=== PATIENT | female | born 1935 | race Caucasian/White ===

== ENCOUNTER 2019-10-17 12:30 | Inpatient (IN) | payer MEDICARE, BC ==
[2019-10-17] MEDS ORDERED: diphenhydrAMINE 25 MG Cap PO PRN (16:41)
--- NOTE | 2019-10-17 16:44 | PCM.HP.2 ---
H&P History of Present Illness - General Date of Service: 10/17/19 Admit Problem/Dx: Admission Diagnosis/Problem Admission Diagnosis/Problem Weakness Source of Information: Patient History Limitations: Reports: No Limitations - History of Present Illness Initial Comments - Free Text/Narative: 84 yo female admitted to [facility] for rehab.She has had right SAIRA. Post op anemia,otherwise doing well. Pain well controlled.Previously healthy with the exception of arthritis and chronic back pain Right Hip Pain Score (Numeric/FACES): 3 - Related Data Allergies/Adverse Reactions: Allergies Allergy/AdvReac Type Severity Reaction Status Date / Time lisinopril Allergy Cough Verified 10/17/19 18:14 Home Medications: Home Meds Acetaminophen [Tylenol Extra Strength] 1,000 mg PO QID 10/17/19 [History] Apixaban [Eliquis] 2.5 mg PO BID 10/17/19 [History] George Cit/Mag/D3/Zn/Pizza Delivery Driver/Harinder/Bor [Citracal-Vit D + Magnesium] 1 tab PO DAILY 10/16 [History] Celecoxib [CeleBREX] 200 mg PO DAILY 10/17/19 [History] Ferrous Gluconate 324 mg PO Q48H 10/17/19 [History] Multivitamin 1 tab PO DAILY 10/17/19 [History] Pantoprazole Sodium [Protonix] 40 mg PO BEDTIME 10/17/19 [History] Sennosides/Docusate Sodium [Senna-S] 1 tab PO BID 10/17/19 [History] atenoloL [Atenolol] 25 mg PO DAILY 10/17/19 [History] diphenhydrAMINE [Benadryl] 25 mg PO BEDTIME PRN 10/17/19 [History] polyethylene glycoL 3350 [MiraLAX] 17 gm PO DAILY 10/17/19 [History] traMADol [Ultram] 50 mg PO Q6H 10/17/19 [History] H&P Review of Systems - Review of Systems: Review Of Systems: Comprehensive ROS is negative, except as noted in HPI. Exam - Exam Exam: See Below - Exam General: Alert, Oriented, 4 HEENT: PERRLA, Hearing Intact, Mucosa Moist & [place], Nares Patent, Normal Nasal Septum, Posterior Pharynx Clear, Conjunctiva Clear, EOMI, EACs Clear, TMs Clear Neck: Supple, Trachea Midline, 2 Lungs: Clear to Auscultation, Normal Respiratory Effort Cardiovascular: Regular Rate, Regular Rhythm GI/Abdominal Exam: Normal Bowel Sounds, Soft, Non-Tender, No Organomegaly, No Distention, No Abnormal Bruit, No Mass, Pelvis Stable (Female) Exam: Deferred Rectal (Female) Exam: Deferred Back Exam: Normal Inspection, Full Range of Motion, NT Extremities: Normal Inspection, Normal Range of Motion, Non-Tender, No Pedal Edema, Normal Capillary Refill Skin: Warm, Dry, Intact Neurological: Cranial Nerves Intact, Reflexes Equal Bilateral Neuro Extensive - Mental Status: Alert, Oriented x3, Normal Mood/Affect, Normal Cognition Neuro Extensive - Motor, Sensory, Reflexes: CN II-XII Intact, Normal Gait, Normal Reflexes Psychiatric: Alert, Normal Affect, Normal Mood - Problem List (1) H/O total hip arthroplasty SNOMED Code(s): 828529117382, [id number] ICD Code: Z96.649 - PRESENCE OF UNSPECIFIED ARTIFICIAL HIP JOINT Status: Acute Current Visit: Yes Qualifiers: Laterality: right Qualified Code(s): Z96.641 - Presence of right artificial hip joint (2) Postoperative anemia SNOMED Code(s): 562628128, 689718556 ICD Code: D64.9 - ANEMIA, UNSPECIFIED Status: Acute Current Visit: Yes Problem List Initiated/Reviewed/Updated: Yes Orders Last 24hrs: Active Orders 24 hr Category Date Time Status Patient Status [ADT] Routine ADT 10/17/19 16:40 Ordered Height and Weight [RC] WEEKLY Care 10/17/19 16:40 Ordered Oxygen Therapy [RC] PRN Care 10/17/19 16:40 Ordered Up With Assistance [RC] ASDIRECTED Care 10/17/19 16:40 Ordered VTE/DVT Education [RC] Per Unit Routine Care 10/17/19 16:40 Ordered Vital Signs [RC] PER UNIT ROUTINE Care 10/17/19 16:40 Ordered OT Evaluation and Treatment [CONS] Routine Cons 10/17/19 16:40 Ordered PT Evaluation and Treatment [CONS] Routine Cons 10/17/19 16:40 Ordered Regular Diet [DIET] Diet 10/17/19 Breakfast Ordered Acetaminophen [Tylenol Extra Strength] Med 10/17/19 17:00 Ordered 1,000 mg PO QID Apixaban [Eliquis] Med 10/17/19 21:00 Ordered 2.5 mg PO BID George Cit/Mag/D3/Zn/Pizza Delivery Driver/Harinder/Bor [Citracal-Vit D + Med 10/18/19 09:00 Ordered Magnesium] 1 tab PO DAILY Celecoxib [CeleBREX] Med 10/18/19 09:00 Ordered 200 mg PO DAILY Docusate Sodium/Sennosides [Senna Plus] Med 10/17/19 21:00 Ordered 1 tab PO BID Ferrous Gluconate [Ferrous Gluconate] Med 10/17/19 16:45 Ordered 324 mg PO Q48H Multivitamins [Tab-A-Sergei] Med 10/18/19 09:00 Ordered 1 tab PO DAILY Pantoprazole [ProTONIX] Med 10/17/19 21:00 Ordered 40 mg PO BEDTIME atenoloL [Tenormin] Med 10/18/19 09:00 Ordered 25 mg PO DAILY diphenhydrAMINE [Benadryl] Med 10/17/19 16:41 Ordered 25 mg PO BEDTIME PRN polyethylene glycoL 3350 [MiraLAX] Med 10/18/19 09:00 Ordered 17 gm PO DAILY traMADol [Ultram] Med 10/17/19 16:45 Ordered 50 mg PO Q6H Resuscitation Status Routine Resus Stat 10/17/19 16:40 Ordered Assessment/Plan Comment:: Admit with SB routine orders.PT/OT
[2019-10-17] MEDS: Acetaminophen 500 MG Tab PO SCH ×2 (17:50→21:58)
[2019-10-17] MEDS: traMADol 50 MG Tab PO SCH (20:12)
[2019-10-17] MEDS: Apixaban 5 MG Tab PO SCH (21:57)
[2019-10-17] MEDS: Pantoprazole 40 MG Tab.CR PO SCH (21:57)
[2019-10-18] MEDS: traMADol 50 MG Tab PO SCH ×4 (03:37→20:08)
[2019-10-18] MEDS: Multivitamin Tab PO SCH (08:33)
[2019-10-18] MEDS: Acetaminophen 500 MG Tab PO SCH ×4 (08:34→20:12)
[2019-10-18] MEDS: Polyethylene Glycol 3350 Powder 17 GM Packet PO SCH ×2 (08:34→08:49)
[2019-10-18] MEDS: Calcium Carbonate 500 MG Tablet PO SCH (08:34)
[2019-10-18] MEDS: Celecoxib 200 MG Cap PO SCH (08:34)
[2019-10-18] MEDS: Apixaban 5 MG Tab PO SCH ×2 (08:34→20:12)
[2019-10-18] MEDS: Atenolol 25 MG Tab PO SCH (08:35)
[2019-10-18] MEDS ORDERED: Polyethylene Glycol 3350 Powder 17 GM Packet PO PRN (14:27)
[2019-10-18] MEDS: Pantoprazole 40 MG Tab.CR PO SCH (20:12)
[2019-10-19] MEDS: traMADol 50 MG Tab PO SCH ×4 (01:20→19:25)
--- OUTSIDE RECORDS SUMMARY | 2019-10-19 07:55 | XMSREPORT ---
:1935 Author Organization [facility] Address [address] [place] [address] Care Team Providers Name Role Phone Rangel Russell MD Primary Care Provider Rangel Russell MD Attributed Provider Reason for Visit Auth/Cert (Routine) Status Reason Specialty Diagnoses / Referred By Referred To Procedures Contact Contact Continuity of Care Diagnoses Unilateral primary osteoarthritis, right hip Ramon Chacon, Procedures ARTHROPLASTY ACETABULAR PROXIMAL FEMORAL PROSTHETIC REPLACE [facility] MARIA LUZ JUÁREZ [address] [place] [id number] Encounter Details Date Type Department Care Team Description 10/13/2019 - Hospital Encounter [facility] Oswaldo, Primary osteoarthritis 10/17/[address] MD Ramon of right hip [facility] [place] [address] [place] [address] [place], [place] [phone] [facility] [phone] Allergies Active Allergy Reactions Severity Noted Date Comments Lisinopril Cough Low 08/27/2015 dizziness Sulfa Drugs Unknown/Not Verified 10/07/2019 documented as of this encounter (statuses as of 10/17/2019) Medications Medication Sig Dispensed Refills Start Date End Date Status multivitamin (CENTRUM Take 1 tablet 0 Active SILVER) tablet by mouth 1 time per day. 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 Additional information Patient taking differently: 200 mg Oral Every other day, Informant: Self, Reported on 10/13/2019 10:31 AM acetaminophen Take 2 tablets 240 0 10/17/2019 11/16/2019 Active (TYLENOL) 500 mg (1,000 mg) by tablet tabletIndications: mouth 4 times a Status post total hip day replacement, right pantoprazole Take 1 tablet 30 tablet 0 10/17/2019 Active (PROTONIX) 40 mg (40 mg) by enteric coated mouth every tabletIndications: night at Chronic gastric ulcer bedtime without hemorrhage and without perforation apixaban (ELIQUIS) 2.5 Take 1 tablet 62 tablet 0 10/17/2019 11/17/2019 Active MG tabletIndications: (2.5 mg) by Prophylaxis of DVT in mouth 2 times a Orthopedic Surgery day Indications: Prophylaxis of Deep Vein Thrombosis in Orthopedic Surgery ferrous gluconate 324 Take 1 tablet 30 tablet 0 10/17/2019 Active (38 Fe) MG (324 mg) by TABSIndications: mouth Every Postoperative anemia other day due to acute blood loss polyethylene glycol Take 1 packet 30 packet 0 10/18/2019 Active (MIRALAX) 17 g by mouth 1 time packetIndications: per day Status post total hip Dissolve in 4 replacement, right to 8 ounces of water, juice, soda, coffee, tea. senna-docusate sodium Take 1 tablet 60 tablet 0 10/17/2019 Active (SENOKOT-S;PERICOLACE) by mouth 2 8.6-50 MG times a day tabletIndications: Status post total hip replacement, right traMADol (ULTRAM) 50 Take 1 tablet 40 tablet 0 10/17/2019 10/27/2019 Active mg tabletIndications: (50 mg) by Status post total hip mouth Every 6 replacement, right hours for 10 days pantoprazole Take 1 tablet 90 tablet 3 08/19/2019 10/17/2019 Discontinued (PROTONIX) 40 mg (40 mg) by (Reorder) enteric coated mouth 1 time a tabletIndications: day in the Chronic gastric ulcer morning without hemorrhage and without perforation traMADol (ULTRAM) 50 Take 1 tablet 30 tablet 1 08/29/2019 10/17/2019 Discontinued mg tabletIndications: (50 mg) by (Stop Taking at Sciatica, right side mouth every 6 Discharge) hours as needed for moderate pain or severe pain acetaminophen Take 1,000 mg 0 10/17/2019 Discontinued (TYLENOL) 500 mg by mouth Every (Reorder) tablet 4 hours as needed traMADol (ULTRAM) 50 Take 1 tablet 40 tablet 0 10/17/2019 10/17/2019 Discontinued mg tabletIndications: (50 mg) by Status post total hip mouth Every 6 replacement, right hours for 10 days documented as of this encounter (statuses as of 10/17/2019) Active Problems Problem Noted Date Primary osteoarthritis of right hip 08/29/2019 Aneurysm, cerebral, nonruptured 03/18/2016 Overview: TABITHA s/p coiling 03/17/[address] Recio Personal history of surgery to major organs, presenting hazards to health Symptomatic menopausal or female climacteric states 10/30/2005 Essential hypertension, benign 10/14/2005 Postmenopausal atrophic vaginitis Absence of menstruation Female genital symptoms Astigmatism Preglaucoma documented as of this encounter (statuses as of 10/17/2019) Immunizations Name Administration Dates Next Due Denosumab (Prolia) 09/23/2012 FLU VACCINE ADJUVANT 65yr+ (Fluad) 02/04/2019 FLU VACCINE HIGH DOSE 65YR+(Fluzone) 02/04/2019, 01/29/2018, 01/29/2018, 02/10/2017, 02/10/2017, 02/21/2016, 02/21/2016, 02/08/2015, 02/08/2015, 01/24/2014, 01/24/2014, 01/27/2013, 01/27/2013, 02/03/2012, 02/03/2012 Pneumococcal Polysaccharide PPSV23 02/29/2008 TDAP 09/20/2013 Td(adult)preservative free 09/24/2009 documented as of this encounter Social History Tobacco Use Types Packs/Day Years Used Date Former Smoker Cigarettes 20 Quit: 05/11/1967 Smokeless Tobacco: Never Used Comments: smoked 10 cigarettes per day Alcohol Use Drinks/Week oz/Week Comments Yes 12-14 Glasses of wine 12.0 - 14.0 Alcohol Habits Answer Date Recorded How often do you have a drink containing 4 or more times a week 10/07/2019 alcohol? How many drinks containing alcohol do you have 1 or 2 10/07/2019 on a typical day when you are drinking? How often do you have six or more drinks on one Not asked occasion? Social Isolation Answer Date Recorded In a typical week, how many times do you More than three times a week 2018 talk on the phone with family, friends, or neighbors? How often do you get together with friends More than three times a week 03/18 or relatives? How often do you attend catholic or More than 4 times per year 03/18/2019 jewish services? Do you belong to any clubs or Yes 03/18/2019 organizations such as catholic groups, unions, fraternal or athletic groups, or school groups? How often do you attend meetings of the More than 4 times per year 03/18/2019 clubs or organizations you belong to? Are you now , , , 03/18/2019 , never or living with a partner? Physical Activity Answer Date Recorded On average, how many days per week do you engage in moderate to 0 days 2018 strenuous exercise (like walking fast, running, jogging, dancing, swimming, biking, or other activities that cause a light or heavy sweat)? On average, how many minutes do you engage in exercise at this 0 min 2019 level? Stress Answer Date Recorded Do you feel stress - tense, restless, nervous, or Only a little 03/18/2019 anxious, or unable to sleep at night because your mind is troubled all the time - these days? Financial Resource Strain Answer Date Recorded How hard is it for you to pay for the very basics like Not hard at all 2018 food, housing, medical care, and heating? Intimate Partner Violence Answer Date Recorded Within the last year, have you been afraid of your partner or No 03/18/2019 ex-partner? Within the last year, have you been humiliated or emotionally No 03/18/2019 abused in other ways by your partner or ex-partner? Within the last year, have you been kicked, hit, slapped, or No 03/18/2019 otherwise physically hurt by your partner or ex-partner? Within the last year, have you been raped or forced to have any No 03/18/2019 kind of sexual activity by your partner or ex-partner? Food Insecurity Answer Date Recorded Within the past 12 months, you worried that your food would Never true 2018 run out before you got money to buy more. Within the past 12 months, the food you bought just didn't Never true 2018 last and you didn't have money to get more. Transportation Needs Answer Date Recorded In the past 12 months, has lack of transportation kept you from No 03/18/2019 medical appointments or from getting medications? In the past 12 months, has lack of transportation kept you from No 03/18/2019 meetings, work, or getting things needed for daily living? Sex Assigned at Date Recorded Not on file Job Start Date Occupation Industry Not on file Not on file Not on file Travel History Travel Start Travel End No recent travel history available. documented as of this encounter Last Filed Vital Signs Vital Sign Reading Time Taken Comments Blood Pressure 121/71 10/17/2019 11:00 AM CDT Pulse 74 10/17/2019 11:00 AM CDT Temperature 36.4 C (97.6 F) 10/17/2019 11:00 AM CDT Respiratory Rate 16 10/17/2019 11:00 AM CDT Oxygen Saturation 96% 10/17/2019 11:00 AM CDT Inhaled Oxygen Concentration - - Weight 55.4 kg (122 lb 2.2 oz) 10/13/2019 9:10 AM CDT Height 152.4 cm (5') 10/13/2019 9:36 AM CDT Body Mass Index 23.85 10/13/2019 9:10 AM CDT documented in this encounter Functional Status Functional Status Response Date of Assessment Is the person deaf or does he/she have serious difficulty No 10/07/2019 hearing? Is this person blind or does he/she have difficulty No 10/07/2019 seeing even when wearing glasses? Do you have difficulty with walking, balance, climbing Yes 10/13/2019 stairs, or had a fall in the last 3 months? Does the patient have difficulty dressing or bathing? No 10/07/2019 Because of a physical, mental, or emotional condition; No 10/07/2019 does this person have difficulty doing errands alone such as visiting a doctor's office or shopping? Cognitive Status Response Date of Assessment Because of a physical, mental, or emotional condition; No 10/07/2019 does this person have serious difficulty concentrating, remembering, or making decisions? documented as of this encounter Discharge Summaries Rajani Morfin MD - 10/17/2019 1:14 PM CDT Hospital Discharge Summary Attending Physician: Ramon Chacon MD Attending Physician Specialty: Orthopedic Surgery Admit Date: 10/13/2019 Discharge Date: 10/17/19 Primary Care Physician: Rangel Russell MD Discharge Diagnoses Active Problems: Primary osteoarthritis of right hip Resolved Problems: * No resolved hospital problems. * Hospital Course 84 y/o F with severe R hip arthritis s/p R total hip arthroplasty with Dr. Chacon on 10/13/2019. Post operative course notable for some stable postop anemia due to blood loss. She tolerated therapies well, but required some additional therapy, and therefore short term swing bed placement was arranged. She was placed on supplemental iron, bowel regimen, Eliquis for DVT prophylaxis, and scheduled acetaminophen alternating with tramadol for pain control. LabTests Pending at Discharge Follow-Up Scheduled Contact information for follow-up Kendell Quintero [facility] [address] [facility] [address] Next Steps: Follow up Instructions: Home health will contact you to set up a time for their services. Preliminary Discharge Medications This list of medications is preliminary and tentative. Please see the After Visit Summary for the final and accurate medication list. Discharge Medication List START taking these medications START: apixaban 2.5 MG tablet Commonly known as: ELIQUIS Dose: 2.5 mg Take 1 tablet (2.5 mg) by mouth 2 times a day Indications: Prophylaxis of Deep Vein Thrombosis in Orthopedic Surgery START: ferrous gluconate 324 (38 Fe) MG Tabs Dose: 324 mg Take 1 tablet (324 mg) by mouth Every other day START: polyethylene glycol 17 g packet Commonly known as: MIRALAX Dose: 1 packet Take 1 packet by mouth 1 time per day Dissolve in 4 to 8 ounces of water, juice , soda, coffee, tea. Start taking on: 10/18/2019 START: senna-docusate sodium 8.6-50 MG tablet Commonly known as: SENOKOT-S;PERICOLACE Dose: 1 tablet Take 1 tablet by mouth 2 times a day CONTINUE taking these medications which have CHANGED CONTINUE: acetaminophen 500 mg tablet Commonly known as: TYLENOL Dose: 1,000 mg Take 2 tablets (1,000 mg) by mouth 4 times a day What changed: when to take this reasons to take this CONTINUE: celecoxib 200 mg capsule Commonly known as: celeBREX Dose: 200 mg Take 1 capsule (200 mg) by mouth 1 time per day What changed: when to take this CONTINUE: traMADol 50 mg tablet Commonly known as: ULTRAM Dose: 50 mg Take 1 tablet (50 mg) by mouth Every 6 hours for 10 days What changed: when to take this reasons to take this CONTINUE taking these medications which have NOT CHANGED CONTINUE: atenolol 25 mg tablet Commonly known as: TENORMIN Dose: 25 mg Take 1 tablet (25 mg) by mouth 1 time per day CONTINUE: CITRACAL SLOW RELEASE PO Dose: 1 tablet Take 1 tablet by mouth 1 time per day Includes 25 mcg D, 12 Mg Calcium, 80mg Magnesium, 5mg sodium CONTINUE: diphenhydrAMINE 25 mg capsule Commonly known as: BENADRYL Dose: 25 mg Take 25 mg by mouth At bedtime as needed for insomnia CONTINUE: multivitamin tablet Dose: 1 tablet Take 1 tablet by mouth 1 time per day. CONTINUE: pantoprazole 40 mg enteric coated tablet Commonly known as: PROTONIX Dose: 40 mg Take 1 tablet (40 mg) by mouth every night at bedtime You might also be taking other medications not listed above. If you have questions about any of your other medications, talk to the person who prescribed them or your Primary Care Provider. Where to Get Your Medications These medications were sent to - [facility] ([facility] [address] [phone] [address] [phone] acetaminophen 500 mg tablet apixaban 2.5 MG tablet ferrous gluconate 324 (38 Fe) MG Tabs pantoprazole 40 mg enteric coated tablet polyethylene glycol 17 g packet senna-docusate sodium 8.6-50 MG tablet Information about where to get these medications is not yet available Ask your nurse or doctor about these medications traMADol 50 mg tablet Temp: 97.6 F (36.4 C) BP: 121/71 Weight: 55.4 kg (122 lb 2.2 oz) SpO2: 96 % Resp: 16 Pulse: 74 Current BMI (>50=increased risk): 24.22 O2 Device: Room Air O2 Flow Rate (L/min): 3 l/min Physical Exam Constitutional: She is oriented to person, place, and time. She appears well- developed and well-nourished. No distress. HENT: Head: Normocephalic and atraumatic. Right Ear: External ear normal. Left Ear: External ear normal. Mouth/Throat: No oropharyngeal exudate. Neck: Neck supple. No JVD present. No tracheal deviation present. Cardiovascular: Normal rate, regular rhythm, normal heart sounds and intact distal pulses. No murmur heard. Pulmonary/Chest: Effort normal and breath sounds normal. No respiratory distress. She has no wheezes. She has no rales. Abdominal: Soft. Bowel sounds are normal. She exhibits no distension. There is no tenderness. There is no rebound. Musculoskeletal: She exhibits no edema. Neurological: She is alert and oriented to person, place, and time. No cranial nerve deficit. Skin: Skin is warm and dry. No rash noted. She is not diaphoretic. No erythema. No pallor. Psychiatric: She has a normal mood and affect. Nursing note and vitals reviewed. Procedures Performed and Findings All procedures during admission Procedure(s): RIGHT TOTAL HIP ARTHROPLASTY Consultations Obtained CONSULT INTERNAL MEDICINE Discharge Disposition ADULT Discharge Planning: Home (1, 2) Instructions for after discharge Call 911 and seek emergency care if you experience any chest pain, shortness of breath or if you are coughing up blood Contact your doctor if you develop a temperature of 101 degrees or greater Contact your doctor if you experience any numbness or tingling in your surgical extremity Contact your doctor if you have any pain or swelling in the calf of either leg Contact your doctor if you have any questions in the first week Contact your doctor if you have any redness or warmth around your incision. ( Bruising is normal, expect the area around your incision to be bruised and many different shades of purple/yellow as the healing stages progress) Contact your doctor if you have significant side effects from your pain medications such as rash, itching, upset stomach or vomiting Contact your doctor if you notice any drainage from your incision or if the edges of your incision come apart Contact your doctor if your pain medications are not keeping your pain at a tolerable level Elevate affected extremity Elevate affected extremity for 30 minutes 4 times per day and as needed for swelling. While lying flat in bed or on the sofa, elevate your surgical leg on 2 -3 pillows so it is above the level of your heart. This will help reduce swelling and pain. Swelling is to be expected for the first couple of weeks after an orthopedic surgery. Ice and elevation are important ways to help manage the swelling and pain. Ice to affected area Ice to affected area: cold packs 5 times per day for 30 minutes and as needed for swelling. Assess skin every 2 hrs. Do not apply directly on skin. Leave dressing on at discharge, then change with occlusive dressing after 3 days, then change every7 days with occlusive dressing until follow up with provider. Purchase dressing from pharmacy at discharge. May not return to work until after follow-up appointment No driving No driving until follow-up with your health care provider No tub bath until directed Do not take a tub bath, go swimming, or sit in a hot tub until your doctor tells you that you may do so. No use of alcohol or non-prescription drugs No use of alcohol. Alcohol affects your balance and can be very harmful if taken with pain medications. Also, do not take any non-prescription drugs not listed on your after visit summary without talking with your doctor first. They may cause increased bleeding and other harmful side effects. Resume home diet Walk frequently and gradually increase the distance you are walking Weight bearing status - As tolerated When showering, cover your dressing with waterproof protection such as saran wrap or press and sealand tape so the dressing does not get wet. Medical Decision Making A total of 25 minutes were spent on discharge coordination. documented in this encounter Discharge Instructions InstructionsAfriyie, Nkechi, RN - 10/17/2019Preventing Blood Clots (Deep Vein Thrombosis) In the days and weeks after surgery, you have a higher chance of developing a deep vein thrombosis (DVT). This is a condition in which a blood clot or thrombus develops in a deep vein. They are most common in the leg. But, a DVT may develop in an arm, or another deep vein in the body. A piece of the clot, called an embolus, can separate from the vein and travel to the lungs. A blood clot in the lungsis called a pulmonary embolus (PE). This can cut off the flow of blood. It is a medical emergency and may cause . Deep vein thrombosis can occur even after you go home. Follow all instructions from your health careprovider. The following are some general guidelines about DVT prevention: Anticoagulant medication. If an anticoagulant was prescribed, make sure you follow all directionsabout taking it. Be sure you know what foods and medicines may interact. Also, ask your health care provider what to do if you forget to take a dose. Compression stockings. Your health care provider will tell you how often to wear and remove the stockings. Follow all instructions closely. Each time you remove your stockings, check your legs and feet for reddened areas or sores. If you see any changes, call your health care provider right away. Returning to activity. Follow all instructions about returning to activities. Be as active as youcan. This improves blood flow and helps prevent a clot from forming. When in bed or in a chair, continue with the ankle exercises you did in the hospital. Elevate your extremity above the level of yourheart to help prevent swelling. documented in this encounter Medications at Time of Discharge Medication Sig Dispensed Refills Start Date End Date acetaminophen (TYLENOL) Take 2 tablets 240 tablet 0 10/17/2019 11/16/2019 500 mg (1,000 mg) by mouth tabletIndications: 4 times a day Status post total hip replacement, right pantoprazole (PROTONIX) Take 1 tablet (40 30 tablet 0 10/17/2019 40 mg enteric coated mg) by mouth every tabletIndications: night at bedtime Chronic gastric ulcer without hemorrhage and without perforation apixaban (ELIQUIS) 2.5 Take 1 tablet (2.5 62 tablet 0 10/17/20192019 MG tabletIndications: mg) by mouth 2 times Prophylaxis of DVT in a day Indications: Orthopedic Surgery Prophylaxis of Deep Vein Thrombosis in Orthopedic Surgery ferrous gluconate 324 Take 1 tablet (324 30 tablet 0 10/17/2019 (38 Fe) MG mg) by mouth Every TABSIndications: other day Postoperative anemia due to acute blood loss polyethylene glycol Take 1 packet by 30 packet 0 10/18/2019 (MIRALAX) 17 g mouth 1 time per day packetIndications: Dissolve in 4 to 8 Status post total hip ounces of water, replacement, right juice, soda, coffee, tea. 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 documented as of this encounter Progress Notes See, Wiliam Ogden MD - 10/16/2019 10:15 AM CDT DAILY PROGRESS NOTE Hermes Rodas is a 84yr old female admitted on 10/13/2019 8:58 AM. Impression / Plan 1.Osteoarthritis right hip s/p RIGHT TOTAL HIP ARTHROPLASTY - management per orthopedic, oral narcotic, PT, OT , Vistaril, plan todc home and not go to SNF because of covid 19 2. Hypertension- continue atenolol 3. GERD- continue protonix 4. DVT prophylaxis- eliquis 5. acute blood loss anemia- monitor hgb Interval History HPI Patient pain is better today Review of Systems Review of Systems Constitutional: Positive for activity change. HENT: Negative for postnasal drip. Eyes: Negative for discharge. Respiratory: Negative for shortness of breath. Cardiovascular: Negative for chest pain. Genitourinary: Negative for dysuria. Musculoskeletal: Positive for arthralgias. Skin: Negative for pallor. Neurological: Negative for dizziness. Hematological: Negative for adenopathy. Psychiatric/Behavioral: Negative for agitation. All other systems reviewed and are negative. Physical Exam Vital Signs: Temp: 98.5 F (36.9 C) | BP: 148/78 | Pulse: 98 | Resp: 16 | Pain Ratin (out of 10) | Weight: 55.4 kg (122 lb 2.2 oz) | O2 Device: Room Air O2 Flow Rate (L/min): 3 l/min | SpO2: 98 % Maximum Temperatures (last 24 hours) Temperature Maximum Max Temp 101.1 F (38.4 C) Intake and Output: 10/14 0700 - 10/15 0659 In: 180 [Oral:180] Out: 700 [Urine:700] Physical Exam Constitutional: She is oriented to person, place, and time. She appears well- developed and well-nourished. No distress. HENT: Head: Normocephalic and atraumatic. Eyes: Right eye exhibits no discharge. Left eye exhibits no discharge. Neck: Normal range of motion. Neck supple. Cardiovascular: Normal rate and regular rhythm. Pulmonary/Chest: Effort normal and breath sounds normal. No respiratory distress. Abdominal: Soft. Bowel sounds are normal. She exhibits no distension. Musculoskeletal: She exhibits edema. Neurological: She is alert and oriented to person, place, and time. Skin: Skin is warm and dry. Nursing note and vitals reviewed. Labs Labs (Last day) 10/16/19 0532 - 10/16/19 0532 CBC 10/16/19 0532 CBC WBC 4.0-11.0 (K/uL) 8.0 RBC 3.80-5.30 (M/uL) 2.77 Hemoglobin 11.5-15.8 (g/dL) 8.5 Hematocrit 35.0-45.0 (%) 25.8 MCV 80.0-98.0 (fL) 93.1 MCH 25.5-34.0 (pg) 30.7 MCHC 31.5-36.5 (g/dL) 32.9 RDW-CV 11.5-15.5 (%) 13.6 RDW-SD 35.5-50.0 (fl) 44.8 Platelet Count 140-400 (K/uL) 334 MPV 8.5-12.0 (fL) 9.4 Medical Decision making MDM Reviewed: previous chart, vitals and nursing note Timmy Bell PA - 10/16/2019 9:31 AM CDT Ortho Progress Note Hermes Rodas is a 84yr old female 3 Days Post-Op, Status Post Procedure(s): RIGHT TOTAL HIP ARTHROPLASTY. BP 148/78 | Pulse 98 | Temp 98.5 F (36.9 C) | Resp 16 | Ht 1.524 m (5') | Wt 55.4 kg (122 lb 2.2 oz) | SpO2 98% | BMI 23.85 kg/m Lab Results Component Value Date HEMOGLOBIN 8.5 (L) 10/16/2019 Patient doing ok, complains of moderate pain. The patient denies nausea. The dressing/incision is clean With no drainage. Ecchymotic posterior hip. Compartments soft and non-tender. Distal NV intact right lower extremity. Plan: Continue cares. Ambulate. WBAT. Prefers home with daughter and HH, SNF only if necessary. Continue PT/OT. Possible discharge Thursday. Wiliam Ramirez MD - 10/15/2019 10:40 AM CDT DAILY PROGRESS NOTE Hermes Rodas is a 84yr old female admitted on 10/13/2019 8:58 AM. Impression / Plan 1.Osteoarthritis right hip s/p RIGHT TOTAL HIP ARTHROPLASTY - management per orthopedic, oral narcotic, PT, OT , add vistaril, holddischarge 2. Hypertension- continue atenolol 3. GERD- continue protonix 4. DVT prophylaxis- eliquis Interval History HPI Patient feeling better today, ambulated with PT today Review of Systems Review of Systems Constitutional: Positive for activity change. HENT: Negative for postnasal drip. Eyes: Negative for discharge. Respiratory: Negative for shortness of breath. Cardiovascular: Negative for chest pain. Genitourinary: Negative for dysuria. Musculoskeletal: Positive for arthralgias. Skin: Negative for pallor. Neurological: Negative for dizziness. Hematological: Negative for adenopathy. Psychiatric/Behavioral: Negative for agitation. All other systems reviewed and are negative. Physical Exam Vital Signs: Temp: 98.4 F (36.9 C) | BP: 125/65 | Pulse: 81 | Resp: 16 | Pain Ratin (out of 10) | Weight: 55.4 kg (122 lb 2.2 oz) | O2 Device: Room Air O2 Flow Rate (L/min): 3 l/min | SpO2: 98 % Maximum Temperatures (last 24 hours) Temperature Maximum Max Temp 99.1 F (37.3 C) Intake and Output: 10/13 0700 - 10/14 0659 In: 2900 [Oral:2900] Out: 1800 [Urine:1800] Physical Exam Constitutional: She is oriented to person, place, and time. She appears well- developed and well-nourished. No distress. HENT: Head: Normocephalic and atraumatic. Eyes: Right eye exhibits no discharge. Left eye exhibits no discharge. Neck: Normal range of motion. Neck supple. Cardiovascular: Normal rate and regular rhythm. Pulmonary/Chest: Effort normal and breath sounds normal. No respiratory distress. Abdominal: Soft. Bowel sounds are normal. She exhibits no distension. Musculoskeletal: She exhibits edema. Neurological: She is alert and oriented to person, place, and time. Skin: Skin is warm and dry. Nursing note and vitals reviewed. Labs Labs (Last day) 10/15/19 0541 - 10/15/19 0541 CBC 10/15/19 0541 CBC Hemoglobin 11.5-15.8 (g/dL) 8.5 Medical Decision making MDM Reviewed: previous chart, vitals and nursing note Wilder Marti PA - 10/15/2019 10:17 AM CDT Orthopedic Daily Progress note: S: 2 Days Post-Op, Procedure(s): RIGHT TOTAL HIP ARTHROPLASTY O: A/O, Pain controlled at rest, still can't WB well without pain Incision C/D/ I with mild ecchymosis. Thigh swelling and soreness but compartments soft. Denies CP, SOB, F/C, N/V Positive DF, PF and EHL function, Sensation: intact to light touch in foot Current Vital Signs Temp: 98.4 F (36.9 C) BP: 125/65 Pulse: 81 O2 Device: Room Air O2 Flow Rate (L/min): 3 l/min Resp: 16 Pain Ratin (out of 10) Weight: 55.4 kg (122 lb 2.2 oz) SpO2: 98 % Pain Ratin Pain Location: Hip Specify: Right Pain character: Aches Intake/Output Summary (Last 24 hours) at 10/15/2019 1017 Last data filed at 10/15/2019 0525 Gross per 24 hour Intake 2900 ml Output 1800 ml Net 1100 ml Lab Results Component Value Date HEMOGLOBIN 8.5 (L) 10/15/2019 Lab Results Component Value Date NA 133 (L) 09/30/2019 Lab Results Component Value Date INR 1.0 (L) 03/24/2017 PT 13.0 03/24/2017 Lab Results Component Value Date BUN 21 09/30/2019 Lab Results Component Value Date CREATSERUM 0.91 09/30/2019 Assessment/Plan: 1. 2 Days Post-Op, Procedure(s):RIGHT TOTAL HIP ARTHROPLASTY 2. Acute blood loss anemia: asx. CBC in morning. Start iron supplements 3. PT/OT: Out of bed, weight bearing status: WBAT Right lower 4. DVT prophylaxis: Eliquis 5. Disposition/Planning: continue working with mobility and pain control. Patient's family working on arranging home for safety. Reassess again Thursday. LUCIE Domingo, PAJarredC Wiliam Ramirez MD - 10/14/2019 10:18 AM CDT DAILY PROGRESS NOTE Hermes Rodas is a 84yr old female admitted on 10/13/2019 8:58 AM. Impression / Plan 1.Osteoarthritis right hip s/p RIGHT TOTAL HIP ARTHROPLASTY - management per orthopedic, oral narcotic, PT, OT , add vistaril, holddischarge 2. Hypertension- continue atenolol 3. GERD- continue protonix 4. DVT prophylaxis- eliquis Interval History HPI Patient report pain in the thigh, have not ambulated yet Review of Systems Review of Systems Constitutional: Positive for activity change. HENT: Negative for postnasal drip. Eyes: Negative for discharge. Respiratory: Negative for shortness of breath. Cardiovascular: Negative for chest pain. Genitourinary: Negative for dysuria. Musculoskeletal: Positive for arthralgias. Skin: Negative for pallor. Neurological: Negative for dizziness. Hematological: Negative for adenopathy. Psychiatric/Behavioral: Negative for agitation. All other systems reviewed and are negative. Physical Exam Vital Signs: Temp: 97.9 F (36.6 C) | BP: 133/66 | Pulse: 76 | Resp: 16 | Pain Ratin (out of 10) | Weight: 55.4 kg (122 lb 2.2 oz) | O2 Device: Room Air O2 Flow Rate (L/min): 3 l/min | SpO2: 96 %(RA) Maximum Temperatures (last 24 hours) Temperature Maximum Max Temp 97.9 F (36.6 C) Intake and Output: 10/12 0700 - 10/13 0659 In: 1695 [Oral:280] Out: 1400 [Urine:1100] Physical Exam Constitutional: She is oriented to person, place, and time. She appears well- developed and well-nourished. No distress. HENT: Head: Normocephalic and atraumatic. Eyes: Right eye exhibits no discharge. Left eye exhibits no discharge. Neck: Normal range of motion. Neck supple. Cardiovascular: Normal rate and regular rhythm. Pulmonary/Chest: Effort normal and breath sounds normal. No respiratory distress. Abdominal: Soft. Bowel sounds are normal. She exhibits no distension. Musculoskeletal: She exhibits edema. Neurological: She is alert and oriented to person, place, and time. Skin: Skin is warm and dry. Nursing note and vitals reviewed. Labs Labs (Last day) 10/14/19 0537 - 10/14/19 0537 CBC 10/14/19 0537 CBC Hemoglobin 11.5-15.8 (g/dL) 9.5 10/13/19 1151 - 10/13/19 1151 OTHER 10/13/19 1151 OTHER CASE REPORT Surgical Pathology Report Case: [id number] Authorizing Provider: Ramon Chacon MD Collected: 2019 1151 Ordering Location: [facility] Received: 2019 1300 Pathologist: Chavez Tovar MD Specimen: Hip, Right Hip Bone And Tissue GROSS DESCRIPTION This result contains rich text formatting which cannot be displayed here. MICROSCOPIC DESCRIPTION This result contains rich text formatting which cannot be displayed here. FINAL DIAGNOSIS This result contains rich text formatting which cannot be displayed here. Medical Decision making MDM Reviewed: previous chart, vitals and nursing note Ramon Pollard MD - 10/14/2019 6:54 AM CDT }Ortho Progress Note Hermes Rodas is a 84yr old female 1 Day Post-Op, Status Post Procedure(s): RIGHT TOTAL HIP ARTHROPLASTY. BP 119/62 | Pulse 72 | Temp 97.6 F (36.4 C) | Resp 16 | Ht 1.524 m (5') | Wt 55.4 kg (122 lb 2.2 oz) | SpO2 96% | BMI 23.85 kg/m Lab Results Component Value Date HEMOGLOBIN 9.5 (L) 10/14/2019 Patient doing ok, slow to mobilize, complains of moderate pain. The patient denies nausea. The dressing/incision is clean Compartments soft and non-tender. Distal NV intact. ROM in PT:65, 15. Ambulated 0 ft. Plan: Continue cares. Continue PT/OT and mobilization. Plan d/c in 1-2 days, when ready. Ramon Chacon MD Sherman Ozuna, PHARM D - 10/13/2019 10:31 AM CDT 10/13/2019 10:32 - Patient was seen by pharmacy. HOME MEDICATIONS have been reconciled and updated to match the patient's home usage. Prior to Admission Medications Prescriptions Last Dose Informant Patient Reported? Taking? Klzjefn-Ahrntnmtq-Dvkwaiz D (CITRACAL SLOW RELEASE PO) 10/05/2019 Self Yes Yes Sig: Take 1 tablet by mouth 1 time per day Includes 25 mcg D, 12 Mg Calcium, 80mg Magnesium, 5mg sodium acetaminophen (TYLENOL) 500 mg tablet 10/12/2019 at HS Self Yes Yes Sig: Take 1,000 mg by mouth Every 4 hours as needed atenolol (TENORMIN) 25 mg tablet 10/13/2019 at 0730 Self No Yes Sig: Take 1 tablet (25 mg) by mouth 1 time per day celecoxib (CELEBREX) 200 mg capsule 10/10/2019 at AM Self No Yes Sig: Take 1 capsule (200 mg) by mouth 1 time per day Patient taking differently: Take 200 mg by mouth Every other day diphenhydrAMINE (BENADRYL) 25 mg capsule 10/13/2019 at 0130 Self Yes Yes Sig: Take 25 mg by mouth At bedtime as needed for insomnia multivitamin (CENTRUM SILVER) tablet 10/05/2019 Self Yes Yes Sig: Take 1 tablet by mouth 1 time per day. pantoprazole (PROTONIX) 40 mg enteric coated tablet 10/12/2019 at HS Self No Yes Sig: Take 1 tablet (40 mg) by mouth 1 time a day in the morning Patient taking differently: Take 40 mg by mouth every night at bedtime traMADol (ULTRAM) 50 mg tablet 10/11/2019 at HS Self No Yes Sig: Take 1 tablet (50 mg) by mouth every 6 hours as needed for moderate pain or severe pain Patient taking differently: Take 50 mg by mouth Every other day Facility-Administered Medications: None PANKAJ Andersen D documented in this encounter Plan of Treatment Date Type Specialty Care Team Description 10/26/2019 Office Visit Orthopedics [facility], SADIA Navarro [address] [place] [address] 11/23/2019 Office Visit Orthopedics Ramon Chacon MD [address] [place] [address] [phone] documented as of this encounter Implants Implanted Type Area Solar Thermal Technician Device Shelf Model / Identifier Expiration Serial / Date Lot Coil Hydroframe 10-Sr 5x10 N [id number] Ea (Aka [id number])-03/17/2016- Neurovascular Cardiovascular ARTERIAL MICROVENTION [id number] / Implanted: Qty: 1 on 03/17/2016 by Hellen Recio MD [employer] / [id number] Description:COIL HYDROFRAME 10-SR 5X10 N 1147-5232 EA (AKA [id number])-03/17/2016-NEUROVASCULAR Coil Hydroframe 10-Sr 3x6 N 5227-7841 Ea (Aka [id number])-03/17/2016- Neurovascular Cardiovascular ARTERIAL MICROVENTION [id number] / Implanted: Qty: 1 on 03/17/2016 by Hellen Recio MD [employer] / [id number] Description:COIL HYDROFRAME 10-SR 3X6 N 3314-5055 EA (AKA 1363-0656)-03/17/2016-NEUROVASCULAR Coil Hydrosoft Hel 2x4 N 2489-9327 Ea (Aka [id number])-03/17/2016-Neurovascular Cardiovascular ARTERIAL MICROVENTION 0576-4909 / Implanted: Qty: 1 on 03/17/2016 by Hellen Recio MD INC / [id number] Description:COIL HYDROSOFT HEL 2X4 N 1060-7319 EA (AKA 9200-1953)-03/17/2016-NEUROVASCULAR Hip Shell Trid Psl [id number] N 542-11-48d Ea1 - [id number] Total Jt Hip Right: ACETABULUM HARITHA 02/14/2024 542-11-48D / Implanted: 10/13/2019 by Ramon Chacon MD at [facility] ( Quantity not on file) / [id number] Hip Hd V40 [place] Cer 36mm-2.5 N 6570-0-436 Ea1 - [id number] Total Jt Hip Right: FEMUR HARITHA 02/28/2021 6570-0-436 / Implanted: 10/13/2019 by Ramon Chacon MD at [facility] ( Quantity not on file) / [id number] Hip Lnr Trid X3 Pe 0d 36mm D N 623-00-36d Ea1 - [id number] Total Jt Hip Right : ACETABULUM HARITHA 12/08/2023 623-00-36D / Implanted: 10/13/2019 by Ramon Chacon MD at [facility] ( Quantity not on file) / [id number] Hip Stem Acldii 132d Sz4 N 9172-3612 Ea1 - [id number] Total Jt Hip Right: FEMUR HARITHA 02/02/2024 3838-9452 / Implanted: 10/13/2019 by Ramon Chacon MD at [facility] ( Quantity not on file) / [id number] Hip Screw Cncls Trident 6.5x20 N - Ea1 - [id number] Total Jt Hip Right: ACETABULUM HARITHA 08/22/202020293485-9072-1 / Implanted: 10/13/2019 by Ramon Chacon MD at [facility] ( Quantity not on file) / [id number] Hip Hl Plug Stry N - Ea1 - [id number] Total Jt Hip Right: ACETABULUM HARITHA 10/08/2020-1 / Implanted: 10/13/2019 by Ramon Chacon MD at [facility] ( Quantity not on file) / [id number] Hip Screw Cncls Trident 6.5x35 N 2637-0227-1 Ea1 - [id number] Total Jt Hip Right: ACETABULUM HARITHA 03/02/202420296858-8287-1 / Implanted: 10/13/2019 by Ramon Chacon MD at [facility] ( Quantity not on file) / [id number] documented as of this encounter Procedures Procedure Name Priority Date/Time Associated Diagnosis Comments SARS-COV-2 RNA, STAT 10/17/2019 9:59 Results for this QUALITATIVE AM CDT procedure are in REAL-TIME RT-PCR the results section. COMPLETE BLOOD COUNT Routine 10/16/2019 5:32 Results for this WITHOUT DIFFERENTIAL AM CDT procedure are in the results section. HEMOGLOBIN Routine 10/15/2019 5:41 Results for this AM CDT procedure are in the results section. HEMOGLOBIN Routine 10/14/2019 5:37 Results for this AM CDT procedure are in the results section. XRAY PELVIS WITH HIP Routine 10/13/2019 1:18 Results for this 1 VIEW RT PM CDT procedure are in the results section. XRAY PELVIS 1 OR 2 Routine 10/13/2019 12:27 Results for this VIEWS PM CDT procedure are in the results section. TISSUE EXAM Routine 10/13/2019 11:51 Primary osteoarthritis Results for this AM CDT of right hip procedure are in the results section. ARTHROPLASTY HIP 10/13/2019 10:47 Primary osteoarthritis AM CDT of right hip Special Needs *X* documented in this encounter Results SARS-COV-2 RNA, QUALITATIVE REAL-TIME RT-PCR (10/17/2019 9:59 AM CDT) SARS CoV RNA, RT Not Detected Not Detected [facility] Specimen Respiratory Narrative Performed At This test was performed by polymerase chain reaction (PCR) [facility] on the [employer]cy MDX instrument. This assay is for in vitro diagnostic use under FDA Emergency Use Authorization only. Optimal performance of this test requires appropriate specimen collection, storage, and transport to the test site. Detection of SARS-CoV-2 RNA may be affected by sample collection methods, patient factors (eg, presence of symptoms), and/or stage of infection. False-negative results may arise from degradation of viral RNA during shipping/storage. Results should be interpreted by a trained professional in conjunction with the patient s history and clinical signs and symptoms, and epidemiological risk factors. Negative results do not preclude infection with the SARS-CoV-2 virus and should not be the sole basis of patient treatment/management or public health decision. Follow up testing should be performed according to the current CDC recommendations. Performing Organization Address City/State/Zipcode Phone Number [facility] [address] [place] [address] COMPLETE BLOOD COUNT WITHOUT DIFFERENTIAL (10/16/2019 5:32 AM CDT) WBC 8.0 4.0 - 11.0 K/uL [facility] RBC 2.77 (L) 3.80 - 5.30 M/uL [facility] Hemoglobin 8.5 (L) 11.5 - 15.8 g/dL [facility] Hematocrit 25.8 (L) 35.0 - 45.0 % [facility] MCV 93.1 80.0 - 98.[address] [facility] MCH 30.7 25.5 - 34.[address] [facility] MCHC 32.9 31.5 - 36.5 g/dL [facility] RDW-CV 13.6 11.5 - 15.5 % [facility] RDW-SD 44.8 35.5 - 50.[address] [facility] Platelet Count 334 140 - 400 K/uL [facility] MPV 9.4 8.5 - 12.[address] [facility] Specimen Blood Performing Organization Address City/[facility]/Zipcode Phone Number [facility] [address] [place], [place] [address] HEMOGLOBIN (10/15/2019 5:41 AM CDT) Hemoglobin 8.5 (L) 11.5 - 15.8 g/dL [facility] Specimen Blood Performing Organization Address City/[facility]/Zipcode Phone Number [facility] [address] [place], [place] [address] HEMOGLOBIN (10/14/2019 5:37 AM CDT) Hemoglobin 9.5 (L) 11.5 - 15.8 g/dL [facility] Specimen Blood Performing Organization Address [facility]/Zipcode Phone Number [facility] [address] [place], [place] [address] XRAY PELVIS WITH HIP 1 VIEW RT (10/13/2019 1:18 PM CDT) Specimen Narrative Performed At [facility] Patient Name: HERMES RODSA Date of :1935 Procedure: XRAY PELVIS WITH HIP 1 VIEW RT Date of Service: 10/13/2019 EXAM: XRAY PELVIS WITH HIP 1 VIEW RT INDICATION:radha COMPARISON(S): Earlier same date. FINDINGS: Portable view of the pelvis was performed. Comparison made to earlier the same day. Postsurgical changes of right hip arthroplasty. Femoral sizing devices been replaced with the femoral component of the hip arthroplasty. Hardware is intact and in good position. Finalized by: Dino Dejesus MD on 10/13/2019 2:16 PM CDT Patient/Procedure Information: [facility] MRN/IRENA: [id number] Order Number: [id number] Accession Number: [id number] Ordering Provider: RAMON JOHN Authorizing Provider: RAMON JOHN Procedure Note Interface, Radiantres - 10/13/2019 2:18 PM CDT Patient Name: HERMES RODAS Date of : 1935 Procedure: XRAY PELVIS WITH HIP 1 VIEW RT Date of Service: 10/13/2019 EXAM: XRAY PELVIS WITH HIP 1 VIEW RT INDICATION:radha COMPARISON(S): Earlier same date. FINDINGS: Portable view of the pelvis was performed. Comparison made to earlier the same day. Postsurgical changes of right hip arthroplasty. Femoral sizing devices been replaced with the femoral component of the hip arthroplasty. Hardware is intact and in good position. Finalized by: Dino Dejesus MD on 10/13/2019 2:16 PM CDT Patient/Procedure Information: [facility] MRN/IRENA: [id number] Order Number: [id number] Accession Number: [id number] Ordering Provider: RAMON JOHN Authorizing Provider: RAMON JOHN Performing Organization Address City/State/Zipcode Phone Number [id number] XRAY PELVIS 1 OR 2 VIEWS (10/13/2019 12:27 PM CDT) Specimen Narrative Performed At [facility] Patient Name: HERMES RODAS Date of :1935 Procedure: XRAY PELVIS 1 OR 2 VIEWS Date of Service: 10/13/2019 EXAM: XRAY PELVIS 1 OR 2 VIEWS INDICATION:Primary osteoarthritis of right hip [M16.11] COMPARISON(S): 08/19/2019. FINDINGS: Portable view of the pelvis was performed. New surgical change from right hip arthroplasty. Femoral sizing device is in place. Finalized by: Dino Dejesus MD on 10/13/2019 2:15 PM CDT Patient/Procedure Information: [facility] MRN/IRENA: [id number] Order Number: [id number] Accession Number: [id number] Ordering Provider: RAMON CHACON Authorizing Provider: RAMON CHACON Procedure Note Interface, Radiantres - 10/13/2019 2:18 PM CDT Patient Name: HERMES RODAS Date of : 1935 Procedure: XRAY PELVIS 1 OR 2 VIEWS Date of Service: 10/13/2019 EXAM: XRAY PELVIS 1 OR 2 VIEWS INDICATION:Primary osteoarthritis of right hip [M16.11] COMPARISON(S): 08/19/2019. FINDINGS: Portable view of the pelvis was performed. New surgical change from right hip arthroplasty. Femoral sizing device is in place. Finalized by: Dino Dejesus MD on 10/13/2019 2:15 PM CDT Patient/Procedure Information: [facility] MRN/IRENA: [id number] Order Number: [id number] Accession Number: [id number] Ordering Provider: RAMON CHACON Authorizing Provider: RAMON CHACON Performing Organization Address City/State/Zipcode Phone Number [id number] TISSUE EXAM (10/13/2019 11:51 AM CDT) FINAL DIAGNOSIS Bone and soft tissue, right hip, arthroplasty: [facility] Electronically signed - Bone with changes grossly consistent with degenerative joint disease, and soft tissue fragments without gross pathological abnormality (gross examination only; see gross description). CLINIC by Chavez Tovar MD on 10/14/2019 at [place]: 9:03 AM GROSS DESCRIPTION Received in formalin labeled "right hip bone and tissue" is a 5.6 x 5.2 x 4.7 cm femoral head with a smooth margin of resection. The articular surface shows areas of eburnation, osteophyte formation and [facility] focal pitting. Sections show an unremarkable cut surface with no evidence of avascular necrosis or periosteal lifting. Also received is a .1.5 x 1.3 x 0.6 cm aggregate of red-brown bone shavings and s CLINIC oft tissue fragments. The specimen is for gross only diagnosis, no sections are submitted. SS:ch MICROSCOPIC [facility] DESCRIPTION CLINIC CASE REPORT Surgical Pathology Report Case: [id number] [facility] Authorizing Provider:Ramon Chacon MD Collected: 10/13/2019 1151 CLINIC Ordering Location: [facility] Received: 10/13/2019 1300 Pathologist: Chavez Tovar MD Specimen:Hip, Right Hip Bone And Tissue EMBEDDED IMAGES [facility] Specimen Bone Performing Organization Address City/State/Zipcode Phone Number [facility] [address] [place] [address] documented in this encounter Visit Diagnoses Diagnosis Status post total hip replacement, right - Primary Primary osteoarthritis of right hip Primary localized osteoarthrosis, pelvic region and thigh Chronic gastric ulcer without hemorrhage and without perforation Postoperative anemia due to acute blood loss Acute posthemorrhagic anemia documented in this encounter Discharge Diagnoses Not on filedocumented in this encounter Administered Medications Medication Order MAR Action Action Date Dose Rate Site acetaminophen (TYLENOL) tablet Given 10/17/2019 10:57 AM CDT 650 mg 650 mg 650 mg, Oral, Every six hours, First dose on Karis 10/13/19 at 1800, Until Discontinued, Post - Op, Alternate with tramadol (ULTRAM); Total dose of acetaminophen from all acetaminophen containing products should not exceed 4 grams (4000 mg) per day., Given 10/17/2019 6:28 AM CDT 650 mg Given 10/16/2019 11:45 PM CDT 650 mg apixaban (ELIQUIS) tablet 2.5 mg Given 10/17/2019 8:52 AM CDT 2.5 mg 2.5 mg, Oral, Two times a day, 70 doses, First dose on Thu10/14/19 at 0800, Last dose on Karis 11/17/19 at 2000, Post - Op Given 10/16/2019 8:09 PM CDT 2.5 mg Given 10/16/2019 9:11 AM CDT 2.5 mg atenolol (TENORMIN) tablet 25 mg Given 10/17/2019 8:52 AM CDT 25 mg 25 mg, Oral, DAILY, First dose on Thu10/14/19 at 0900, Until Discontinued Given 10/16/2019 9:11 AM CDT 25 mg Given 10/15/2019 9:12 AM CDT 25 mg ferrous gluconate tablet 324 mg Given 10/17/2019 8:53 AM CDT 324 mg 324 mg, Oral, Two times a day, 60 doses, First dose on 10/15/19 at 1025, Last dose on 11/13/19 at 2100 Given 10/16/2019 8:09 PM CDT 324 mg Given 10/16/2019 9:11 AM CDT 324 mg hydrALAZINE (APRESOLINE) injection solution 10 mg 10 mg, IV, Every four hours prn, Starting Karis 10/13/19 at 1514, Until Discontinued, SBP > 160, 0.5 mL hydrOXYzine pamoate (VISTARIL) capsule 25 mg Given 10/14/2019 11:46 AM CDT 25 mg 25 mg, Oral, Every six hours prn, Starting Thu10/14/19 at 1017, Until Discontinued, anxiety, pain adjunct oxyCODONE (OXY-IR) tablet 5-10 mg Given 10/15/2019 12:22 PM CDT 10 mg 5-10 mg, Oral, Every four hours prn, Starting [facility] 10/13/19 at 1511, Until Discontinued, moderate pain, severe pain, Post - Op, For patients with moderate pain, pain rating of 4-6, give Oxycodone 5mg PO every 4 hours PRN. For patients with severe pain, pain rating of 7-10, give Oxycodone 10mg PO every 4 hours PRN., Given 10/14/2019 10:24 AM CDT 10 mg Given 10/14/2019 2:00 AM CDT 10 mg pantoprazole (PROTONIX) enteric coated tablet Given 10/16/2019 8:09 PM CDT 40 mg 40 mg 40 mg, Oral, Bedtime, First dose on Thu10/13/19 at 2100, Until Discontinued, Tablet should be swallowed whole and not be divided, crushed or chewed., Given 10/15/2019 8:39 PM CDT 40 mg Given 10/14/2019 8:30 PM CDT 40 mg polyethylene glycol (MIRALAX) packet 1 Given 10/17/2019 8:52 AM CDT 1 packet packet 1 packet, Oral, Daily, First dose on Thu10/14/19 at 0900, Until Discontinued, Post - Op, Hold if 2 loose stools occur in the last 24 hours., Given 10/16/2019 9:10 AM CDT 1 packet Given 10/15/2019 9:13 AM CDT 1 packet senna-docusate sodium Given 10/17/2019 8:52 AM CDT 1 tablet (SENOKOT-S;PERICOLACE) tablet 1 tablet 1 tablet, Oral, Two times a day, First dose on Karis 10/13/19 at 2100, Until Discontinued, Post - Op, Hold if 2 loose stools occur in the last 24 hours., Given 10/16/2019 8:09 PM CDT 1 tablet Given 10/16/2019 9:10 AM CDT 1 tablet sodium chloride 0.9% flush (adult) 10 mL Given 10/17/2019 8:53 AM CDT 10 mL 10 mL, IV, Two times a day and prn, First dose on Karis 10/13/19 at 2100, Until Discontinued, 10 mL, Post - Op, Flush IV line as scheduled and as often as necessary before and after meds., Given 10/16/2019 8:10 PM CDT 10 mL Given 10/16/2019 9:11 AM CDT 10 mL traMADol (ULTRAM) tablet 50 mg Given 10/17/2019 2:08 PM CDT 50 mg 50 mg, Oral, Every six hours, First dose on Karis 10/13/19 at 1515, Until Discontinued, Post - Op, Alternate with acetaminophen (TYLENOL). Recommended maximum daily dose of wfaOEAxc=416 mg. Recommended maximum daily dose in patients greater than 75 years of kyk=125 mg, Given 10/17/2019 8:52 AM CDT 50 mg Given 10/17/2019 3:18 AM CDT 50 mg Medication Order MAR Action Action Date Dose Rate Site acetaminophen (TYLENOL) tablet Given 10/13/2019 10:09 AM CDT 1,000 mg 1,000 mg 1,000 mg, Oral, Pre-op, 1 dose, Karis 10/13/19 at 0910, Pre - Op, Total dose of acetaminophen from all acetaminophen containing products should not exceed 4 grams (4000 mg) per day., ceFAZolin (ANCEF) 2000 mg/20 mL sterile Given 10/14/2019 3:06 AM CDT 2,000 mg water IV syringe 2,000 mg, IV, Every eight hours, 2 doses, First dose on Thu10/13/19 at 2000, Last dose on Thu10/14/19 at 0400, 20 mL, PACU - Continue Post-Op, Administer as IV push over 4 minutes., Given 10/13/2019 8:26 PM CDT 2,000 mg gabapentin (NEURONTIN) capsule 600 mg Given 10/13/2019 10:08 AM CDT 600 mg 600 mg, Oral, Pre-op, 1 dose, Karis 10/13/19 at 0910, Pre - Op, 1 dose prior to surgery, lactated ringers IV solution New Bag 10/13/2019 11:52 AM CDT IV, at 25 mL/hr, Continuous, Starting Karis 10/13/19 at 1015, Until Karis 10/13/19 at 1201, 1,000 mL, Pre - Op New Bag 10/13/2019 10:27 AM CDT 25 mL/hr lactated ringers IV solution Already Infusing 10/13/2019 12:55 PM CDT 125 mL/hr IV, at 125 mL/hr, Continuous, Starting Karis 10/13/19 at 1300, Until Karis 10/13/19 at 1417, 1,000 mL, PACU, TKO current fluids if patient is going to Day Unit / ARU and tolerating PO fluids without nausea., sodium chloride 0.9% IV solution New Bag 10/13/2019 3:30 PM CDT 125 mL/hr IV, at 125 mL/hr, Continuous, Starting Karis 10/13/19 at 1515, Until 10/16/19 at 0719, 1,000 mL, Post - Op traMADol (ULTRAM) tablet 100 mg Given 10/13/2019 10:09 AM CDT 100 mg 100 mg, Oral, Pre-op, 1 dose, Karis 10/13/19 at 0910, Pre - Op, Recommended maximum daily dose of mpwwlhxe=980 mg. Recommended maximum daily dose in patients 75 years or jebtf=406 mg., documented in this encounter
[2019-10-19] MEDS: Celecoxib 200 MG Cap PO SCH (09:32)
[2019-10-19] MEDS: Apixaban 5 MG Tab PO SCH ×2 (09:33→20:21)
[2019-10-19] MEDS: Multivitamin Tab PO SCH (09:33)
[2019-10-19] MEDS: Acetaminophen 500 MG Tab PO SCH ×4 (09:34→20:21)
[2019-10-19] MEDS: Ferrous Sulfate 325 MG Tab PO SCH (09:34)
[2019-10-19] MEDS: Calcium Carbonate 500 MG Tablet PO SCH (09:35)
[2019-10-19] MEDS: Atenolol 25 MG Tab PO SCH (09:36)
[2019-10-19] MEDS: Pantoprazole 40 MG Tab.CR PO SCH (20:22)
[2019-10-20] MEDS ORDERED: ClonazePAM 0.5 MG Tab PO ONE (00:39)
[2019-10-20] MEDS: Pramipexole 0.25 MG Tab PO SCH ×2 (01:05→21:18)
[2019-10-20] MEDS: traMADol 50 MG Tab PO SCH ×4 (01:06→20:23)
[2019-10-20] MEDS: Multivitamin Tab PO SCH (08:37)
[2019-10-20] MEDS: Celecoxib 200 MG Cap PO SCH (08:37)
[2019-10-20] MEDS: Apixaban 5 MG Tab PO SCH ×2 (08:37→20:24)
[2019-10-20] MEDS: Calcium Carbonate 500 MG Tablet PO SCH (08:37)
[2019-10-20] MEDS: Acetaminophen 500 MG Tab PO SCH ×4 (08:37→21:18)
[2019-10-20] MEDS: Atenolol 25 MG Tab PO SCH (08:37)
[2019-10-20] MEDS: Pantoprazole 40 MG Tab.CR PO SCH (20:24)
[2019-10-20] MEDS ORDERED: Pramipexole 0.25 MG Tab PO SCH (21:00)
[2019-10-20] MEDS: Melatonin 3 MG Tab PO SCH (21:18)
[2019-10-21] MEDS: traMADol 50 MG Tab PO SCH ×4 (02:05→19:21)
[2019-10-21] MEDS: Calcium Carbonate 500 MG Tablet PO SCH (09:28)
[2019-10-21] MEDS: Apixaban 5 MG Tab PO SCH ×2 (09:28→21:04)
[2019-10-21] MEDS: Ferrous Sulfate 325 MG Tab PO SCH (09:28)
[2019-10-21] MEDS: Celecoxib 200 MG Cap PO SCH (09:28)
[2019-10-21] MEDS: Atenolol 25 MG Tab PO SCH (09:29)
[2019-10-21] MEDS: Acetaminophen 500 MG Tab PO SCH ×4 (09:29→21:04)
[2019-10-21] MEDS: Multivitamin Tab PO SCH (09:29)
[2019-10-21] MEDS: Magnesium Chloride 64 MG Tab.ER PO SCH (09:33)
[2019-10-21] MEDS: Pantoprazole 40 MG Tab.CR PO SCH (21:05)
[2019-10-21] MEDS: Melatonin 3 MG Tab PO SCH (21:05)
[2019-10-21] MEDS: Pramipexole 0.25 MG Tab PO SCH (21:05)
[2019-10-22] MEDS: traMADol 50 MG Tab PO SCH ×4 (02:03→20:06)
[2019-10-22] MEDS: Apixaban 5 MG Tab PO SCH ×2 (08:19→20:16)
[2019-10-22] MEDS: Magnesium Chloride 64 MG Tab.ER PO SCH (08:19)
[2019-10-22] MEDS: Celecoxib 200 MG Cap PO SCH (08:19)
[2019-10-22] MEDS: Calcium Carbonate 500 MG Tablet PO SCH (08:20)
[2019-10-22] MEDS: Atenolol 25 MG Tab PO SCH (08:20)
[2019-10-22] MEDS: Multivitamin Tab PO SCH (08:20)
[2019-10-22] MEDS: Acetaminophen 500 MG Tab PO SCH ×4 (08:21→21:34)
[2019-10-22] MEDS: Trolamine Salicylate/Aloe Vera 10% Crm 85 GM Tube TOP PRN ×2 (10:20→20:07)
[2019-10-22] MEDS: Pantoprazole 40 MG Tab.CR PO SCH (20:17)
[2019-10-22] MEDS: Melatonin 3 MG Tab PO SCH (21:33)
[2019-10-22] MEDS: Pramipexole 0.25 MG Tab PO SCH (21:34)
[2019-10-23] MEDS: traMADol 50 MG Tab PO SCH ×4 (02:04→19:59)
[2019-10-23] MEDS: Trolamine Salicylate/Aloe Vera 10% Crm 85 GM Tube TOP PRN ×5 (02:07→21:37)
[2019-10-23] MEDS: Acetaminophen 500 MG Tab PO SCH ×4 (08:01→21:26)
[2019-10-23] MEDS: Atenolol 25 MG Tab PO SCH (08:01)
[2019-10-23] MEDS: Celecoxib 200 MG Cap PO SCH (08:02)
[2019-10-23] MEDS: Calcium Carbonate 500 MG Tablet PO SCH (08:02)
[2019-10-23] MEDS: Apixaban 5 MG Tab PO SCH ×2 (08:03→20:00)
[2019-10-23] MEDS: Ferrous Sulfate 325 MG Tab PO SCH (08:03)
[2019-10-23] MEDS: Magnesium Chloride 64 MG Tab.ER PO SCH (08:03)
[2019-10-23] MEDS: Multivitamin Tab PO SCH (08:08)
[2019-10-23] MEDS: Pantoprazole 40 MG Tab.CR PO SCH (20:00)
[2019-10-23] MEDS: Melatonin 3 MG Tab PO SCH (21:25)
[2019-10-23] MEDS: Pramipexole 0.25 MG Tab PO SCH (21:25)
[2019-10-24] MEDS: traMADol 50 MG Tab PO SCH ×4 (01:44→20:16)
[2019-10-24] MEDS: Trolamine Salicylate/Aloe Vera 10% Crm 85 GM Tube TOP PRN ×2 (06:05→14:36)
[2019-10-24] MEDS: Celecoxib 200 MG Cap PO SCH (08:15)
[2019-10-24] MEDS: Multivitamin Tab PO SCH (08:16)
[2019-10-24] MEDS: Apixaban 5 MG Tab PO SCH ×2 (08:16→21:01)
[2019-10-24] MEDS: Acetaminophen 500 MG Tab PO SCH ×3 (08:16→21:00)
[2019-10-24] MEDS: Magnesium Chloride 64 MG Tab.ER PO SCH (08:16)
[2019-10-24] MEDS: Calcium Carbonate 500 MG Tablet PO SCH (08:16)
[2019-10-24] MEDS: Atenolol 25 MG Tab PO SCH (08:20)
[2019-10-24] MEDS: Melatonin 3 MG Tab PO SCH (21:01)
[2019-10-24] MEDS: Pantoprazole 40 MG Tab.CR PO SCH (21:01)
[2019-10-24] MEDS: Pramipexole 0.25 MG Tab PO SCH (21:02)
[2019-10-25] MEDS: traMADol 50 MG Tab PO SCH ×4 (01:51→19:54)
[2019-10-25] MEDS: Trolamine Salicylate/Aloe Vera 10% Crm 85 GM Tube TOP PRN (06:29)
[2019-10-25] MEDS: Apixaban 5 MG Tab PO SCH ×2 (08:29→20:57)
[2019-10-25] MEDS: Celecoxib 200 MG Cap PO SCH (08:29)
[2019-10-25] MEDS: Acetaminophen 500 MG Tab PO SCH (08:30)
[2019-10-25] MEDS: Calcium Carbonate 500 MG Tablet PO SCH (08:30)
[2019-10-25] MEDS: Magnesium Chloride 64 MG Tab.ER PO SCH (08:30)
[2019-10-25] MEDS: Ferrous Sulfate 325 MG Tab PO SCH (08:30)
[2019-10-25] MEDS: Multivitamin Tab PO SCH (08:30)
[2019-10-25] MEDS: Atenolol 25 MG Tab PO SCH (08:30)
--- NOTE | 2019-10-25 09:07 | PCM.PN ---
- General Info Date of Service: 10/25/19 Admission Dx/Problem (Free Text): Melanie having more pain in left shoulder today, can barely lift it. She states she has been having bilateral shoulder pain since her surgery as she's using her arms more than usual but on Thursday when she was plugging her dryerman/woman into the socket, she had her left arm extended and had to push the dryerman/woman in using more force and felt a "pop". Staff had put Aspercreme and warm packs on her arm and had been feeling better but today seems worse. Her hip is better due to be discharged tomorrow and have follow up appt with orthopedics also tomorrow. Had some diarrhea yesterday so stool softeners held. - Patient Data Vitals - Most Recent: Last Vital Signs Temp 98.0 F 10/24/19 09:00 Pulse 77 10/25/19 08:30 Resp 16 10/24/19 09:00 BP 143/82 H 10/25/19 08:30 Pulse Ox 95 10/24/19 09:00 Weight - Most Recent: 131 lb Med Orders - Current: Current Medications Acetaminophen (Tylenol) 650 mg PO QID [facility] Apixaban (Eliquis) 2.5 mg PO BID [facility] Stop: 11/17/19 09:01 Last Admin: 10/25/19 08:29 Dose: 2.5 mg Atenolol (Tenormin) 25 mg PO DAILY [facility] Last Admin: 10/25/19 08:30 Dose: 25 mg Calcium Carbonate/Glycine (Oyster Shell Calcium) 500 mg PO DAILY [facility] Last Admin: 10/25/19 08:30 Dose: 500 mg Celecoxib (Celebrex) 200 mg PO DAILY [facility] Last Admin: 10/25/19 08:29 Dose: 200 mg Diphenhydramine HCl (Benadryl) 25 mg PO BEDTIME PRN PRN Reason: Sleep Last Admin: 10/19/19 22:00 Dose: 25 mg Ferrous Sulfate (Ferrous Sulfate) 325 mg PO Q48H [facility] Last Admin: 10/25/19 08:30 Dose: 325 mg Magnesium Chloride (Mag-64) 64 mg PO DAILY [facility] Last Admin: 10/25/19 08:30 Dose: 64 mg Melatonin (Melatonin) 9 mg PO BEDTIME [facility] Last Admin: 10/24/19 21:01 Dose: 9 mg Multivitamins/Minerals/Vitamin C (Tab-A-Sergei) 1 tab PO DAILY [facility] Last Admin: 10/25/19 08:30 Dose: 1 tab Pantoprazole Sodium (Protonix) 40 mg PO BEDTIME [facility] Last Admin: 10/24/19 21:01 Dose: 40 mg Polyethylene Glycol (Miralax) 17 gm PO DAILY PRN PRN Reason: Constipation Pramipexole Dihydrochloride (Mirapex) 0.25 mg PO BEDTIME [facility] Last Admin: 10/24/19 21:02 Dose: 0.25 mg Senna/Docusate Sodium (Senna Plus) 1 tab PO BID [facility] Last Admin: 10/25/19 08:35 Dose: Not Given Tramadol HCl (Ultram) 50 mg PO Q6H [facility] Last Admin: 10/25/19 07:24 Dose: 50 mg Trolamine Salicylate (Aspercreme 10%) 0 gm TOP QID PRN PRN Reason: pain Last Admin: 10/25/19 06:29 Dose: 1 applic Discontinued Medications Acetaminophen (Tylenol Extra Strength) 1,000 mg PO QID [facility] Last Admin: 10/24/19 14:27 Dose: 1,000 mg Acetaminophen (Tylenol Extra Strength) 1,000 mg PO TID [facility] Last Admin: 10/25/19 08:30 Dose: 1,000 mg Clonazepam (Klonopin) 0.5 mg PO ONETIME ONE Stop: 10/20/19 00:40 Last Admin: 10/20/19 01:04 Dose: 0.5 mg Polyethylene Glycol (Miralax) 17 gm PO DAILY [facility] Last Admin: 10/18/19 08:49 Dose: Not Given Pramipexole Dihydrochloride (Mirapex) 0.25 mg PO BEDTIME [facility] - Exam General: Alert, Oriented, Cooperative, Mild Distress (pain with trying to lift left shoulder) Lungs: Clear to Auscultation, Normal Respiratory Effort Cardiovascular: Regular Rate, Regular Rhythm GI/Abdominal Exam: Normal Bowel Sounds, Soft, Non-Tender, No Distention Extremities: Normal Inspection, Limited Range of Motion (unable to passive abduction, can with assistance, TTP over distal deltoid/supraspinatus insertion. NT over scalpula, glenohumeral joing. No swelling or erythema noted.) Peripheral Pulses: 2+: Radial (L), Radial (R) Skin: Warm, Dry, Intact Sepsis Event Note - Evaluation Sepsis Screening Result: No Definite Risk - Focused Exam Vital Signs: Vital Signs Pulse BP 10/25/19 08:30 77 143/82 H Date Exam was Performed: 10/25/19 Time Exam was Performed: 09:01 - Problem List & Annotations (1) Left shoulder pain SNOMED Code(s): 70422276, 37072181 Code(s): M25.512 - PAIN IN LEFT SHOULDER Status: Acute Current Visit: Yes (2) H/O total hip arthroplasty SNOMED Code(s): 841833335271, 057093808317 Code(s): Z96.649 - PRESENCE OF UNSPECIFIED ARTIFICIAL HIP JOINT Status: Acute Current Visit: Yes Qualifiers: Laterality: right Qualified Code(s): Z96.641 - Presence of right artificial hip joint - Problem List Review Problem List Initiated/Reviewed/Updated: Yes - My Orders Last 24 Hours: My Active Orders 10/25/19 08:59 Shoulder Comp Lt [CR] Routine 10/25/19 13:00 Acetaminophen [Tylenol] 650 mg PO QID - Plan Plan:: 1. Decreased her dose of Tylenol to 650 mg and increase frequency to qid to stay within daily recommended max dose. 2. Left shoulder x-ray, continue Aspercreme and warm packs to left shoulder. Will have PT assess when they see this morning for any home exercises. Follow up with Orthopedics tomorrow, may need MRI questionable tear of supraspinatus.
--- NOTE | 2019-10-25 11:44 | CR ---
INDICATION: [place] a pop while plugging a cord into the wall. LEFT SHOULDER: Three views of the left shoulder were obtained 10/25/19 - no comparison. A mild degree of demineralization may be present - correlate clinically. Fracture, dislocation or other definite acute bone or joint abnormality was not identified. Very minimal degenerative change is noted at the glenohumeral joint with the joint space well maintained. Adjacent ribs and lung were unremarkable. IMPRESSION: No acute fracture or dislocation. MTDD
[2019-10-25] MEDS: Acetaminophen 325 MG Tab PO SCH ×3 (13:19→20:58)
[2019-10-25] MEDS: Pramipexole 0.25 MG Tab PO SCH (20:58)
[2019-10-25] MEDS: Pantoprazole 40 MG Tab.CR PO SCH (20:59)
[2019-10-25] MEDS: Melatonin 3 MG Tab PO SCH (20:59)
[2019-10-26] MEDS: traMADol 50 MG Tab PO SCH ×2 (02:03→08:28)
[2019-10-26] MEDS: Acetaminophen 325 MG Tab PO SCH (08:32)
[2019-10-26] MEDS: Magnesium Chloride 64 MG Tab.ER PO SCH (08:32)
[2019-10-26] MEDS: Apixaban 5 MG Tab PO SCH (08:32)
[2019-10-26] MEDS: Multivitamin Tab PO SCH (08:32)
[2019-10-26] MEDS: Calcium Carbonate 500 MG Tablet PO SCH (08:32)
[2019-10-26] MEDS: Celecoxib 200 MG Cap PO SCH (08:32)
[2019-10-26] MEDS: Atenolol 25 MG Tab PO SCH (10:32)
--- NOTE | 2019-10-26 11:00 | PCM.DCSUM1 ---
Discharge Summary - Hospital Course HPI Initial Comments: 84 yo female admitted to [facility] for rehab.She has had right SAIRA. Post op anemia,otherwise doing well. Pain well controlled.Previously healthy with the exception of arthritis and chronic back pain. Diagnosis: Stroke: No - Discharge Data Discharge Date: 10/26/19 ([facility]) Discharge Disposition: Home, W Home Health Agency 06 Condition: Good - Referral to Home Health Date of Face to Face Encounter: 10/26/19 Reason for Homebound Status: Can't drive Primary Care Physician: Rangel Russell MD Skilled Need: PT/OT - Discharge Diagnosis/Problem(s) (1) H/O total hip arthroplasty SNOMED Code(s): 794843871586, 304607955830 ICD Code: Z96.649 - PRESENCE OF UNSPECIFIED ARTIFICIAL HIP JOINT Status: Acute Current Visit: Yes Qualifiers: Laterality: right Qualified Code(s): Z96.641 - Presence of right artificial hip joint (2) Left shoulder pain SNOMED Code(s): 22502439, 35414634 ICD Code: M25.512 - PAIN IN LEFT SHOULDER Status: Acute Current Visit: Yes (3) Postoperative anemia SNOMED Code(s): 014287294, 145232879 ICD Code: D64.9 - ANEMIA, UNSPECIFIED Status: Resolved Current Visit: Yes - Patient Summary/Data Consults: Consultations 10/17/19 16:40 OT Evaluation and Treatment [CONS] Routine Please Evaluate and Treat. OT Reason for Consult: ADL's This query below is only for informational purposes and is not editable. PT Evaluation and Treatment [CONS] Routine Please Evaluate and Treat. PT Reason for Consult: Ambulation This query below is only for informational purposes and is not editable. Hospital Course: Melanie progressed well with PT/OT services, received 2 day letter on Thursday, will go to Dr Kendrick today for follow up. She was having bilateral shoulder pain with increased use of front wheel walker. She was reaching forward to pull in her phone to charge on Thursday and had to force the plug in, felt a "pop" in her left shoulder. Initially treated with Aspercreme and warm packs with improvement. PT/OT gave her range of motion exercises. She also was having restless legs since admission so she was started on Ropinirole 0.25 mg at bedtime, symptoms improved, Dr Russell may reassess after she is at home to see if she still needs this. She was supplemented with magnesium as her home Citracal has magnesium in it and hospital formulary calcium did not. Will resume home Citracal on discharge. Pharmacy reviewed her medications and her dose of Tylenol was 4G/day so decreased to 3G tid, patient's pain increased after this change so decreased dose to 650 mg and increased frequency to qid and her pain is controlled. Left shoulder x-ray did not show any acute process. Advised to discuss her left shoulder with Dr Kendrick today at her appointment. Home with Home Health for PT/OT. - Patient Instructions Diet: Regular Diet as Tolerated Driving: Do Not Drive Showering/Bathing: May Shower Notify Provider of: Fever, Increased Pain Other/Special Instructions: Follow up with Orthopedics today as previously scheduled. Follow up with Dr Russell in 1-2 weeks. - Discharge Plan *PRESCRIPTION DRUG MONITORING PROGRAM REVIEWED*: Not Applicable *COPY OF PRESCRIPTION DRUG MONITORING REPORT IN PATIENT BAMBI: Not Applicable Prescriptions/Med Rec: Apixaban [Eliquis] 2.5 mg PO BID 23 Days #45 tablet rOPINIRole [Requip] 0.25 mg PO BEDTIME 14 Days #14 tablet Home Medications: Home Meds [place] Cit/Mag/D3/Zn/Embalmer/Funeral Director/Harinder/Bor [Citracal-Vit D + Magnesium] 1 tab PO DAILY 10/17/19 [History] Celecoxib [CeleBREX] 200 mg PO DAILY 10/17/19 [History] Ferrous Gluconate 324 mg PO Q48H 10/17/19 [History] Multivitamin 1 tab PO DAILY 10/17/19 [History] Pantoprazole Sodium [Protonix] 40 mg PO BEDTIME 10/17/19 [History] atenoloL [Atenolol] 25 mg PO DAILY 10/17/19 [History] diphenhydrAMINE [Benadryl] 25 mg PO BEDTIME PRN 10/17/19 [History] polyethylene glycoL 3350 [MiraLAX] 17 gm PO DAILY 10/17/19 [History] traMADol [Ultram] 50 mg PO Q6H 10/17/19 [History] Acetaminophen [Tylenol] 650 mg PO QID tablet 10/26/19 [Rx] Apixaban [Eliquis] 2.5 mg PO BID 23 Days #45 tablet 10/26/19 [Rx] Melatonin 9 mg PO BEDTIME tablet 10/26/19 [Rx] Sennosides/Docusate Sodium [Senna-S] 1 tab PO BID PRN #10 tab 10/26/19 [Rx] Trolamine Salicylate/Aloe Vera [Aspercreme 10%] 0 gm TOP QID PRN tube 10/26/19 [Rx] rOPINIRole [Requip] 0.25 mg PO BEDTIME 14 Days #14 tablet 10/26/19 [Rx] Patient Handouts: Anemia, Shoulder Pain, [id number] Referrals: Rangel Russell MD [Primary Care Provider] - - Discharge Summary/Plan Comment DC Time >30 min.: No - General Info Date of Service: 10/26/19 Admission Dx/Problem (Free Text: Melanie's left shoulder pain is much better since changing the Tylenol dosing and schedule. Had a little loose stool so declined Senna this morning. She states she takes prunes usually at home. No chest pain or shortness of breath. Functional Status: Reports: Pain Controlled, Tolerating Diet, Ambulating, Urinating - Patient Data Vitals - Most Recent: Last Vital Signs Temp 98.2 F 10/25/19 09:00 Pulse 80 10/26/19 10:32 Resp 18 10/25/19 09:00 BP 134/75 10/26/19 10:32 Pulse Ox 98 10/25/19 09:00 Weight - Most Recent: 131 lb Med Orders - Current: Current Medications Acetaminophen (Tylenol) 650 mg PO QID [facility] Last Admin: 10/26/19 08:32 Dose: 650 mg Documented by: Apixaban (Eliquis) 2.5 mg PO BID [facility] Stop: 11/17/19 09:01 Last Admin: 10/26/19 08:32 Dose: 2.5 mg Documented by: Atenolol (Tenormin) 25 mg PO DAILY [facility] Last Admin: 10/26/19 10:32 Dose: 25 mg Documented by: Calcium Carbonate/Glycine (Oyster Shell Calcium) 500 mg PO DAILY [facility] Last Admin: 10/26/19 08:32 Dose: 500 mg Documented by: Celecoxib (Celebrex) 200 mg PO DAILY [facility] Last Admin: 10/26/19 08:32 Dose: 200 mg Documented by: Diphenhydramine HCl (Benadryl) 25 mg PO BEDTIME PRN PRN Reason: Sleep Last Admin: 10/19/19 22:00 Dose: 25 mg Documented by: Ferrous Sulfate (Ferrous Sulfate) 325 mg PO Q48H [facility] Last Admin: 10/25/19 08:30 Dose: 325 mg Documented by: Magnesium Chloride (Mag-64) 64 mg PO DAILY [facility] Last Admin: 10/26/19 08:32 Dose: 64 mg Documented by: Melatonin (Melatonin) 9 mg PO BEDTIME [facility] Last Admin: 10/25/19 20:59 Dose: 9 mg Documented by: Multivitamins/Minerals/Vitamin C (Tab-A-Sergei) 1 tab PO DAILY [facility] Last Admin: 10/26/19 08:32 Dose: 1 tab Documented by: Pantoprazole Sodium (Protonix) 40 mg PO BEDTIME [facility] Last Admin: 10/25/19 20:59 Dose: 40 mg Documented by: Polyethylene Glycol (Miralax) 17 gm PO DAILY PRN PRN Reason: Constipation Pramipexole Dihydrochloride (Mirapex) 0.25 mg PO BEDTIME [facility] Last Admin: 10/25/19 20:58 Dose: 0.25 mg Documented by: Senna/Docusate Sodium (Senna Plus) 1 tab PO BID [facility] Last Admin: 10/26/19 08:33 Dose: Not Given Documented by: Tramadol HCl (Ultram) 50 mg PO Q6H [facility] Last Admin: 10/26/19 08:28 Dose: 50 mg Documented by: Trolamine Salicylate (Aspercreme 10%) 0 gm TOP QID PRN PRN Reason: pain Last Admin: 10/25/19 06:29 Dose: 1 applic Documented by: Discontinued Medications Acetaminophen (Tylenol Extra Strength) 1,000 mg PO QID [facility] Last Admin: 10/24/19 14:27 Dose: 1,000 mg Documented by: Acetaminophen (Tylenol Extra Strength) 1,000 mg PO TID [facility] Last Admin: 10/25/19 08:30 Dose: 1,000 mg Documented by: Clonazepam (Klonopin) 0.5 mg PO ONETIME ONE Stop: 10/20/19 00:40 Last Admin: 10/20/19 01:04 Dose: 0.5 mg Documented by: Polyethylene Glycol (Miralax) 17 gm PO DAILY [facility] Last Admin: 10/18/19 08:49 Dose: Not Given Documented by: Pramipexole Dihydrochloride (Mirapex) 0.25 mg PO BEDTIME [facility] - Exam General: Reports: Alert, Oriented, Cooperative, No Acute Distress Lungs: Reports: Clear to Auscultation, Normal Respiratory Effort Cardiovascular: Reports: Regular Rate, Regular Rhythm GI/Abdominal Exam: Normal Bowel Sounds, Soft, Non-Tender, No Distention Extremities: Normal Inspection
== END 2019-10-26 12:50 | disposition home health service (06) | DRG 561 ==
LOC: FB.MS 15:40
PROVIDERS: ADMIT Family Medicine; ATTEND Family Medicine
DX: Z47.1 Aftercare following joint replacement surgery (principal); Z96.641 Presence of right artificial hip joint; M25.512 Pain in left shoulder; R53.1 Weakness; D64.9 Anemia, unspecified; M19.90 Unspecified osteoarthritis, unspecified site; G89.29 Other chronic pain; M54.9 Dorsalgia, unspecified; M25.511 Pain in right shoulder; Z88.8 Allergy status to other drugs, medicaments and biological substances; Z79.899 Other long term (current) drug therapy
CPT/HCPCS: 73030-LT; 97110-GO; 97110-GP; 97116-GP; 97161-GP; 97165-GO; 97530-GO; 97530-GP; 97535-GO; A9270-GY